=== PATIENT | male | born 1955 | race Caucasian/White ===

== ENCOUNTER 2021-09-11 21:43 | Emergency (ER) | payer MEDICARE, OTHER ==
--- NOTE | 2021-09-11 22:26 | EDM.PDOC ---
ED HPI GENERAL MEDICAL PROBLEM - General Chief Complaint: Fever Stated Complaint: WEAK, FEVER? Time Seen by Provider: 09/11/21 21:55 Source of Information: Reports: Patient History Limitations: Reports: No Limitations - History of Present Illness INITIAL COMMENTS - FREE TEXT/NARRATIVE: Corey is a 65-year-old male who presents to the ED for evaluation of high fever, headache, sore throat and cough. The patient's symptoms started yesterday and he left work at [employer] around 2 PM because he was not feeling well. The patient has undergone both vaccinations for COVID-19 as well as the booster. He states that his temperature at home was 105 F. He denies any loss of taste or smell but did burn his mouth yesterday when eating food. He has had some body aches today. Denies any nausea, vomiting, diarrhea or constipation. He has not had any loss of appetite. He does feel general malaise today. He denies any urinary symptoms including urgency, frequency, or burning with urination. - Related Data Allergies Allergy/AdvReac Type Severity Reaction Status Date / Time No Known Allergies Allergy Verified 09/11/21 22:02 Home Meds: Home Meds NK [No Known Home Meds] 09/11/21 [History] Past Medical History HEENT History: Reports: Allergic Rhinitis, Impaired Vision Cardiovascular History: Reports: Other (See Below) Other Cardiovascular History: occasional bradycardia Neurological History: Reports: Concussion - Infectious Disease History Infectious Disease History: Reports: Chicken Pox, Influenza, Measles, Mumps - Past Surgical History GI Surgical History: Reports: Colonoscopy, Polypectomy Musculoskeletal Surgical History: Reports: Arthroscopic Knee Social & Family History - Tobacco Use Tobacco Use Status *Q: Never Tobacco User - Recreational Drug Use Recreational Drug Use: No ED ROS GENERAL - Review of Systems Review Of Systems: See Below Constitutional: Reports: Fever, Chills, Malaise, Weakness HEENT: Reports: Rhinitis, Throat Pain Respiratory: Reports: Shortness of Breath, Cough Cardiovascular: Reports: No Symptoms Endocrine: Reports: No Symptoms GI/Abdominal: Reports: No Symptoms : Reports: No Symptoms Musculoskeletal: Reports: Muscle Pain Skin: Reports: No Symptoms Neurological: Reports: No Symptoms Psychiatric: Reports: No Symptoms Hematologic/Lymphatic: Reports: No Symptoms Immunologic: Reports: No Symptoms ED EXAM, GENERAL - Physical Exam Exam: See Below Exam Limited By: No Limitations General Appearance: Alert, Mild Distress Eye Exam: Bilateral Eye: EOMI, PERRL Nose: Nasal Swelling, Nasal Drainage, Clear Rhinorrhea Throat/Mouth: Normal Voice, No Airway Compromise, Other (Retropharyngeal erythema) Head: Atraumatic, Normocephalic Neck: Normal Inspection, Supple, Non-Tender, Full Range of Motion. No: L ymphadenopathy (R), Lymphadenopathy (L) Respiratory/Chest: No Respiratory Distress, Lungs Clear, Normal Breath Sounds, No Accessory Muscle Use. No: Crackles, Rales, Rhonchi, Wheezing Cardiovascular: Normal Peripheral Pulses, Regular Rate, Rhythm, No Murmur Peripheral Pulses: 2+: Radial (L), Radial (R) GI/Abdominal: Normal Bowel Sounds, Soft, Non-Tender, No Distention. No: Guarding, Rebound Extremities: Normal Inspection Neurological: Alert, Oriented, Normal Cognition, No Motor/Sensory Deficits Psychiatric: Normal Mood Skin Exam: Warm, Dry Course - Vital Signs Last Recorded V/S: Last Vital Signs Temp 38.3 C H 09/11/21 22:06 Pulse 94 09/11/21 22:06 Resp 19 09/11/21 22:06 BP 137/79 09/11/21 22:06 Pulse Ox 95 09/11/21 22:06 - Orders/Labs/Meds Orders: Active Orders 24 hr Category Date Time Status Chest 1V Frontal [CR] Stat Exams 09/11/21 22:13 Taken CULTURE STREP A CONFIRMATION [RM] Stat Lab 09/11/21 22:35 Results STREP SCRN A RAPID W CULT CONF [RM] Stat Lab 09/11/21 22:35 Results Isolation [COMM] Stat Oth 09/11/21 22:15 Ordered Labs: Laboratory Tests 09/11/21 09/11/21 09/11/21 Range/Units 22:27 22:27 22:27 WBC 20.9 H (4.5-11.0) K/uL RBC 4.43 (4.30-5.90) M/uL Hgb 13.6 (12.0-15.0) g/dL Hct 40.6 (40.0-54.0) % MCV 92 (80-98) fL MCH 31 (27-31) pg MCHC 34 (32-36) % Plt Count 324 (150-400) K/uL Neut % (Auto) 86.7 H (36-66) % Lymph % (Auto) 6.6 L (24-44) % [place] % (Auto) 6.5 H (2-6) % Eos % (Auto) 0.1 L (2-4) % Baso % (Auto) 0.1 (0-1) % Sodium 139 L (140-148) mmol/L Potassium 3.8 (3.6-5.2) mmol/L Chloride 100 (100-108) mmol/L Carbon Dioxide 31 (21-32) mmol/L Anion Gap 11.8 (5.0-14.0) mmol/L BUN 13 (7-18) mg/dL Creatinine 1.0 (0.8-1.3) mg/dL Est Cr Clr Drug Dosing 82.12 mL/min Estimated GFR (MDRD) > 60 (>60) Glucose 115 H (74-106) mg/dL Lactic Acid 0.8 (0.4-2.0) mmol/L Calcium 8.9 (8.5-10.1) mg/dL Total Bilirubin 0.6 (0.2-1.0) mg/dL AST 19 (15-37) U/L ALT 27 (12-78) U/L Alkaline Phosphatase 88 (46-116) U/L Lactate Dehydrogenase 191 (85-227) U/L Total Protein 6.8 (6.4-8.2) g/dL Albumin 3.7 (3.4-5.0) g/dL Globulin 3.1 (2.3-3.5) g/dL Albumin/Globulin Ratio 1.2 (1.2-2.2) Urine Color (YELLOW) Urine Appearance (CLEAR) Urine pH (5.0-8.0) Ur Specific [place] (1.008-1.030) Urine Protein (NEGATIVE) mg/dL Urine Glucose (UA) (NEGATIVE) mg/dL Urine Ketones (NEGATIVE) mg/dL Urine Occult Blood (NEGATIVE) Urine Nitrite (NEGATIVE) Urine Bilirubin (NEGATIVE) Urine Urobilinogen (0.2-1.0) EU/dL Ur Leukocyte Esterase (NEGATIVE) Urine RBC (0-5) Urine WBC (0-5) Ur Epithelial Cells Amorphous Sediment Urine Bacteria Urine Mucus Influenza Type A RNA (NEGATIVE) RSV RNA (INAAT) (NEGATIVE) Influenza Type B RNA (NEGATIVE) SARS-CoV-2 RNA (MONO) (NEGATIVE) 09/11/21 09/11/21 Range/Units 22:35 22:48 WBC (4.5-11.0) K/uL RBC (4.30-5.90) M/uL Hgb (12.0-15.0) g/dL Hct (40.0-54.0) % MCV (80-98) fL MCH (27-31) pg MCHC (32-36) % Plt Count (150-400) K/uL Neut % (Auto) (36-66) % Lymph % (Auto) (24-44) % [place] % (Auto) (2-6) % Eos % (Auto) (2-4) % Baso % (Auto) (0-1) % Sodium (140-148) mmol/L Potassium (3.6-5.2) mmol/L Chloride (100-108) mmol/L Carbon Dioxide (21-32) mmol/L Anion Gap (5.0-14.0) mmol/L BUN (7-18) mg/dL Creatinine (0.8-1.3) mg/dL Est Cr Clr Drug Dosing mL/min Estimated GFR (MDRD) (>60) Glucose (74-106) mg/dL Lactic Acid (0.4-2.0) mmol/L Calcium (8.5-10.1) mg/dL Total Bilirubin (0.2-1.0) mg/dL AST (15-37) U/L ALT (12-78) U/L Alkaline Phosphatase (46-116) U/L Lactate Dehydrogenase (85-227) U/L Total Protein (6.4-8.2) g/dL Albumin (3.4-5.0) g/dL Globulin (2.3-3.5) g/dL Albumin/Globulin Ratio (1.2-2.2) Urine Color Yellow (YELLOW) Urine Appearance Clear (CLEAR) Urine pH 8.0 (5.0-8.0) Ur Specific [place] 1.025 (1.008-1.030) Urine Protein Negative (NEGATIVE) mg/dL Urine Glucose (UA) Negative (NEGATIVE) mg/dL Urine Ketones Negative (NEGATIVE) mg/dL Urine Occult Blood Negative (NEGATIVE) Urine Nitrite Negative (NEGATIVE) Urine Bilirubin Negative (NEGATIVE) Urine Urobilinogen 2.0 H (0.2-1.0) EU/dL Ur Leukocyte Esterase Negative (NEGATIVE) Urine RBC 0-5 (0-5) Urine WBC 0-5 (0-5) Ur Epithelial Cells Not seen Amorphous Sediment Not seen Urine Bacteria Few Urine Mucus Not seen Influenza Type A RNA Negative (NEGATIVE) RSV RNA (INAAT) Negative (NEGATIVE) Influenza Type B RNA Negative (NEGATIVE) SARS-CoV-2 RNA (MONO) Negative (NEGATIVE) - Radiology Interpretation Free Text/Narrative:: I reviewed the one-view portable chest x-ray on the patient showing no acute abnormalities including infiltrates, perihilar adenopathy, and the patient had a normal cardiac silhouette. - Re-Assessments/Exams Free Text/Narrative Re-Assessment/Exam: 09/11/21 23:07 I reviewed the patient's labs showing a negative group A strep. He does have a significant leukocytosis at 20.9 with 86% neutrophils, hemoglobin of 13.6 and a platelet count of 324,000. The comprehensive metabolic panel was unremarkable with a sodium 139, potassium 3.8, chloride of 100, bicarbonate of 31, BUN of 13 with a creatinine 1.0 and a glucose of 115. AST, ALT and alkaline phosphatase were normal. Calcium and albumin were normal. Venous lactate was 0.8 and LDH was 191. 09/12/21 00:37 urinalysis and Covid test are both negative. Based on the patient's presentation, this is likely an acute bronchitis. We will put him on azithromycin Z-Law. This was prescribed him in the [employer] machine. At this time he is suitable for discharge home. A work note was given to him excusing him from work for yesterday and today as well as tomorrow. Indications return to the ED were discussed. Departure - Departure Time of Disposition: 00:38 Disposition: Home, Self-Care 01 Clinical Impression: Acute bronchitis Qualifiers: Bronchitis organism: unspecified organism Qualified Code(s): J20.9 - Acute bronchitis, unspecified - Discharge Information Instructions: Acute Bronchitis, Adult, [id number] Referrals: PCP,None [Primary Care Provider] - Forms: ED Department Discharge Care Plan Goals: It was determined that you likely have acute bronchitis. We are going to put you on azithromycin Z-Law. Please take as directed with 2 pills today and then 1 pill a day for the next 4 days after that. This should help clear up your infection. Continue to take ibuprofen or Tylenol for your fever. Sepsis Event Note (ED) - Evaluation Sepsis Screening Result: Possible Sepsis Risk - Focused Exam Vital Signs: Vital Signs Temp Pulse Resp BP Pulse Ox 09/11/21 22:06 38.3 C H 94 19 137/79 95 - Problem List & Annotations (1) Acute bronchitis SNOMED Code(s): 64641483 Code(s): J20.9 - ACUTE BRONCHITIS, UNSPECIFIED Status: Acute Priority: High Current Visit: Yes Qualifiers: Bronchitis organism: unspecified organism Qualified Code(s): J20.9 - Acute bronchitis, unspecified - Problem List Review Problem List Initiated/Reviewed/Updated: Yes - My Orders Last 24 Hours: My Active Orders 09/11/21 22:13 Chest 1V Frontal [CR] Stat 09/11/21 22:15 Isolation [COMM] Stat 09/11/21 22:35 CULTURE STREP A CONFIRMATION [RM] Stat STREP SCRN A RAPID W CULT CONF [RM] Stat - Assessment/Plan Last 24 Hours: My Active Orders 09/11/21 22:13 Chest 1V Frontal [CR] Stat 09/11/21 22:15 Isolation [COMM] Stat 09/11/21 22:35 CULTURE STREP A CONFIRMATION [RM] Stat STREP SCRN A RAPID W CULT CONF [RM] Stat
[2021-09-11 23:51] LABS: CORONAVIRUS COVID-19 NAA NEGATIVE (NEGATIVE)
--- NOTE | 2021-09-14 09:37 | CR ---
CHEST: Portable 09/11/2021 at 10:25 PM CLINICAL HISTORY:Fever COMPARISON:None FINDINGS: The heart size, pulmonary vascularity and hilar structures are normal. No infiltrate effusion or pneumothorax is seen. IMPRESSION: No acute cardiopulmonary process.
== END 2021-09-12 00:54 | disposition home or self-care (01) ==
LOC: JP.ED 21:43
DX: J20.9 Acute bronchitis, unspecified (principal); Z20.822 Contact with and (suspected) exposure to COVID-19
CPT/HCPCS: 0241U; 36415; 71045; 80053; 81001; 83605; 83615; 85025; 87081; 87880; 99284

== ENCOUNTER 2022-01-30 19:50 | Emergency (ER) | payer MEDICARE, OTHER | END 2022-01-30 22:44 | disposition home or self-care (01) | LOC: JP.ED 19:50 | DX: M79.605 Pain in left leg (principal); M79.2 Neuralgia and neuritis, unspecified | CPT/HCPCS: 99283 ==

== ENCOUNTER 2022-05-10 02:56 | Emergency (ER) | payer MEDICARE ==
[2022-05-10 03:25] LABS: ESTIMATED GFR 94 mL/min (>60)
[2022-05-10] MEDS ORDERED: Melatonin 3 MG Tab PO STA (04:54)
== END 2022-05-10 06:12 | disposition home or self-care (01) ==
LOC: JP.ED 02:56
DX: F01.51 Vascular dementia, unspecified severity, with behavioral disturbance (principal); Z20.822 Contact with and (suspected) exposure to COVID-19
CPT/HCPCS: 36415; 70450; 80053; 80305; 80307; 81001; 85025; 85610; 85730; 99285; A9270; U0002

== ENCOUNTER 2022-05-16 13:24 | Emergency (ER) | payer OTHER, MEDICARE ==
[2022-05-16] MEDS ORDERED: Ketorolac 30 MG/ML SDV IM ONE (15:04)
[2022-05-16] MEDS ORDERED: Tamsulosin 0.4 MG Cap.ER PO ONE (15:06)
== END 2022-05-16 16:20 | disposition home or self-care (01) ==
LOC: JP.ED 13:24
DX: S60.311A Abrasion of right thumb, initial encounter (principal); F01.51 Vascular dementia, unspecified severity, with behavioral disturbance; V49.40XA Driver injured in collision with unspecified motor vehicles in traffic accident, initial encounter; Y92.410 Unspecified street and highway as the place of occurrence of the external cause
CPT/HCPCS: 71046; 96372; 99284; A9270; J1885

== ENCOUNTER 2022-05-17 12:10 | Emergency (ER) | payer OTHER, MEDICARE ==
[2022-05-17] MEDS ORDERED: Naproxen 250 MG Tab PO ONE (13:45)
[2022-05-18] MEDS ORDERED: Naproxen 250 MG Tab PO ONE (12:47)
== END 2022-05-17 17:05 | disposition home or self-care (01) ==
LOC: JP.ED 12:10
DX: S32.592A Other specified fracture of left pubis, initial encounter for closed fracture (principal); M16.0 Bilateral primary osteoarthritis of hip; M87.052 Idiopathic aseptic necrosis of left femur; M25.851 Other specified joint disorders, right hip; V49.40XA Driver injured in collision with unspecified motor vehicles in traffic accident, initial encounter; Y92.410 Unspecified street and highway as the place of occurrence of the external cause
CPT/HCPCS: 72170; 73552; 99284; A9270